=== PATIENT | male | born 1960 | race Caucasian/White ===

== ENCOUNTER 2018-02-16 21:22 | Emergency (ER) | payer OTHER ==
--- NOTE | 2018-02-16 21:45 | ED ---
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 He does suffer from depression. He has a petition dating needs to be evaluated. He does have a history of the patient disorder for the petition. He does admit that he sees a psychiatrist and psychologist and is on medication. He states he has been taking it. He denies any suicidal or homicidal ideation. Patient is cooperative. Patient denies any recent fever, chills, shortness of breath, chest pain, back pain, abdominal pain, nausea vomiting, numbness or tingling, dysuria or hematuria, constipation or diarrhea, headaches or visual changes, or any other current symptoms. - Related Data Home Medications Medication Instructions Recorded Confirmed Albuterol Inhaler [Ventolin Hfa 2 puff INHALATION RT-Q6H PRN 02/16/18 02/16/18 Inhaler] Citalopram Hydrobromide [CeleXA] 20 mg PO DAILY 02/16/18 02/16/18 Insulin NPH Human Isophane 47 unit SQ BID 02/16/18 02/16/18 [NovoLIN N] Lisinopril [Prinivil] 20 mg PO DAILY 02/16/18 02/16/18 Multivitamins, Thera [Multivitamin 1 tab PO DAILY 02/16/18 02/16/18 (formulary)] Pravastatin Sodium [Pravachol] 20 mg PO DAILY 02/16/18 02/16/18 Allergies Allergy/AdvReac Type Severity Reaction Status Date / Time No Known Allergies Allergy Verified 02/16/18 21:49 Review of Systems ROS Statement: Those systems with pertinent positive or pertinent negative responses have been documented in the HPI. ROS Other: All systems not noted in ROS Statement are negative. Past Medical History Past Medical History: Diabetes Mellitus, Pneumonia, Supraventricular Tachycardia (SVT) History of Any Multi-Drug Resistant Organisms: None Reported Past Surgical History: Orthopedic Surgery Past Psychological History: No Psychological Hx Reported Smoking Status: Current every day smoker Past Alcohol Use History: Rare Past Drug Use History: None Reported General Exam Limitations: no limitations General appearance: alert, in no apparent distress ENT exam: Present: normal exam, mucous membranes moist Neck exam: Present: normal inspection. Absent: tenderness, meningismus, lymphadenopathy Respiratory exam: Present: normal lung sounds bilaterally. Absent: respiratory distress, wheezes, rales, rhonchi, stridor Cardiovascular Exam: Present: regular rate, normal rhythm, normal heart sounds. Absent: systolic murmur, diastolic murmur, rubs, gallop, clicks Neurological exam: Present: alert, oriented X3 Psychiatric exam: Absent: homicidal ideation, suicidal ideation Skin exam: Present: warm, dry, intact, normal color. Absent: rash Course Vital Signs 02/16/18 21:24 Temperature 98.3 F Pulse Rate 92 Respiratory 18 Rate Blood Pressure 201/95 O2 Sat by Pulse 94 L Oximetry Medical Decision Making - Medical Decision Making 58-year-old male presents for mental health evaluation. At this time the patient does not appear to be suffering from any acute medical emergencies. Patient is cleared to be evaluated by psychiatry. At this time patient was evaluated by psychiatry and they discussed outpatient follow-up. Patient does consent to safety all questions have been answered. Patient will be discharged. - Lab Data Lab Results 02/16/18 Range/Units 21:47 Urine Opiates Screen Not Detected (NotDetected) Ur Oxycodone Screen Not Detected (NotDetected) Urine Methadone Screen Not Detected (NotDetected) Ur Propoxyphene Screen Not Detected (NotDetected) Ur Barbiturates Screen Not Detected (NotDetected) U Tricyclic Antidepress Not Detected (NotDetected) Ur Phencyclidine Scrn Not Detected (NotDetected) Ur Amphetamines Screen Not Detected (NotDetected) U Methamphetamines Scrn Not Detected (NotDetected) U Benzodiazepines Scrn Not Detected (NotDetected) Urine Cocaine Screen Not Detected (NotDetected) U Marijuana (THC) Screen Not Detected (NotDetected) Disposition Clinical Impression: Depression Disposition: HOME SELF-CARE Condition: Stable Instructions: Depression (ED) Additional Instructions: Please use medication as discussed. Please follow up with family doctor if symptoms have not improved over the next two days. Please return to the emergency room if your symptoms increase or worsen or for any other concerns. Please return to the emergency department if he developed any suicidal or homicidal thoughts. Referrals: Stanley Liang MD [Primary Care Provider] - 1-2 days Time of Disposition: 23:39
[2018-02-16 22:02] LABS: Amphetamine Screen,Urine Not Detected (NotDetected); Barbiturate Screen,Urine Not Detected (NotDetected); Benzodiazepines Screen,Urine Not Detected (NotDetected); Cocaine Screen,Urine Not Detected (NotDetected); Methadone Screen, Urine Not Detected (NotDetected); Opiate Screen,Urine Not Detected (NotDetected); Oxycodone Screen, Urine Not Detected (NotDetected); Phencyclidine Screen,Urine Not Detected (NotDetected); Tricyclic Antidepressant,Urine Not Detected (NotDetected); Urn Cannabinoid Scrn Not Detected (NotDetected)
[2018-02-16 23:52] VITALS: BP 158/84; PULSE 75; RESP 16; TEMP 98.7
== END 2018-02-16 23:55 | disposition home or self-care (01) ==
LOC: EC 21:22
DX: F32.9 Major depressive disorder, single episode, unspecified (principal); E11.9 Type 2 diabetes mellitus without complications; F17.200 Nicotine dependence, unspecified, uncomplicated; Z79.4 Long term (current) use of insulin; Z79.899 Other long term (current) drug therapy
CPT/HCPCS: 80306; 82075; 99284